=== PATIENT | female | born 1970 | race Caucasian/White ===

== ENCOUNTER 2018-02-02 15:25 | Emergency (ER) | payer BC ==
[~2018-02-02] VITALS: Ht 165.1 cm; Wt 75.8 kg
[2018-02-02] MEDS ORDERED: NORCO 5-325 TA1 EACH PO (17:01)
[2018-02-02] MEDS ORDERED: IBUPROFEN 800800 MG PO (17:01)
[2018-02-02 17:13] VITALS: BP 120/74
== END 2018-02-02 17:31 | disposition home or self-care (01) ==
LOC: M.ERS 15:25
DX: S43.101A Unspecified dislocation of right acromioclavicular joint, initial encounter (principal); S70.311A Abrasion, right thigh, initial encounter; S80.211A Abrasion, right knee, initial encounter; W22.8XXA Striking against or struck by other objects, initial encounter; Y93.I9 Activity, other involving external motion; Y92.89 Other specified places as the place of occurrence of the external cause; Y99.8 Other external cause status